=== PATIENT | male | born 1955 | race Caucasian/White ===

== ENCOUNTER → 2017-09-22 | Outpatient (CLI) | payer OTHER ==
--- NOTE | 2017-09-22 16:43 | PN ---
PROGRESS NOTE The patient is coming in for [facility]. The patient was diagnosed having moderate to severe JACLYN with an AHI of 29, worse in the supine body position. The patient was given auto CPAP unit with a minimum pressure of 5 maximum pressure of 20 and today she is coming in for a compliancy check. The patient is benefitting from the treatment. He reports marked improvement in sleep quality and is sleeping much better. He is waking up alert and refreshed during the day. He is compliant with CPAP therapy. His compliancy for more than 4 hours is 24/30 over the past 30 days. Average CPAP is around 7.8 hours per night and his P90 pressure is at 7.4. The patient has no leaks around the mask. The patient is utilizing an AirFit P10 nose pillows. AHI while on treatment is down to 5.2. He has no specific complaints. Treatment has been very successful for the time being. PHYSICAL EXAMINATION: BP is 130/75, pulse 92, respirations 16, weight is 258, temperature 96.7, saturation 97% on room air. General appearance is calm and comfortable. No acute distress. Head is atraumatic, normocephalic. Neck is supple. There is no JVD. No goiter. No neck masses. Lungs diminished breath sounds, bilaterally otherwise clear. Heart sounds regular rate and rhythm. Normal S1, S2. No S3, S4. No murmurs. Abdomen is soft, nontender. No organomegaly. Organs cannot be adequately palpated. Extremities no edema. No cyanosis or clubbing. Neuro AO x3. There is no focal neurological deficit. Psych: No anxiety and no depression. IMPRESSION: 1. Symptomatic obstructive sleep apnea. Moderate to severe. AHI of 29, worse in the supine body position. 2. Hypersomnia improving. 3. Obesity. 4. Hypertension. 5. Prostate cancer. 6. Depression. PLAN: 1. Encourage weight loss. 2. Treatment is successful, the patient benefitting from CPAP treatment and he is very much compliant. We will keep him an auto CPAP therapy with a minimum pressure of 5 and maximum pressure of 20 and monitor his clinical response and compliance. The patient is doing very well. He has no specific complaints. Keep the same mask interface. See me back in a year's time earlier if needed. No issues with the treatment. This is a successful treatment for the time being. MMODL / IJN: [id number] /
== END | disposition home or self-care (01) ==
LOC: SLEEP 14:39
PROVIDERS: ATTEND Internal Medicine Critical Care Medicine
DX: G47.33 Obstructive sleep apnea (adult) (pediatric) (principal); G47.10 Hypersomnia, unspecified; E66.9 Obesity, unspecified; I10 Essential (primary) hypertension; C61 Malignant neoplasm of prostate; F32.9 Major depressive disorder, single episode, unspecified